=== PATIENT | male | born 1990 | race Caucasian/White ===

== ENCOUNTER 2017-09-05 18:02 | Emergency (ER) | payer OTHER ==
[~2017-09-05] VITALS: Ht 172.7 cm; Wt 115.7 kg
--- NOTE | 2017-09-05 20:00 | ULTRASOUND REPORT ---
EXAMINATION: US RETROPERITONEAL COMPLETE (RENAL) CLINICAL INFORMATION: Right flank pain.. COMPARISON: Renal ultrasound 11/02/2009. CT abdomen pelvis 09/29/2009. TECHNIQUE: Real-time imaging of the kidneys and bladder. Color Doppler exam used. FINDINGS: RIGHT KIDNEY: 12.9 x 5.8 x 6.7 cm (SAG x AP x TRV). There is mild hydronephrosis of right kidney. There is dilatation of renal pelvis and calyces. No renal calculus. The kidney is of normal size and contour with normal cortical thickness and normal echogenicity of the cortex. LEFT KIDNEY: 12.5 x 6.4 x 5.8 cm (SAG x AP x TRV). The kidney is normal in size, contour, and echogenicity. Renal cortical thickness is normal. No calculi or focal parenchymal lesions. No hydronephrosis. BLADDER: Prevoid bladder volume is 43.5 mL. Bilateral ureteral jets are demonstrated. Post void bladder was not assessed. IMPRESSION: Hydronephrosis of the right kidney.. No renal calculus. CT stone study may be helpful for further assessment.
[2017-09-05 20:05] LABS: ABSOLUTE BASOPHIL COUNT 0 /CUMM (0.0-0.2); ABSOLUTE EOSINOPHIL COUNT 0.1 /CUMM (0.0-0.7); ABSOLUTE GRANULOCYTE CT 6.6 /CUMM (1.4-6.5); ABSOLUTE LYMPH COUNT 1.9 /CUMM (1.2-3.4); ABSOLUTE MONOCYTE COUNT 0.7 /CUMM (0.10-0.60); BASOPHIL % 0.3 % (0.0-2.0); EOSINOPHIL % 1.5 % (0-5); HEMATOCRIT 44.7 % (42-52); MEAN CORPUSCULAR HGB 29.6 PG (27.0-31.0); MEAN CORPUSCULAR HGB CONC 33.9 G/DL (33.0-37.0); MEAN CORPUSCULAR VOLUME 87.2 FL (80.0-94.0); MEAN PLATELET VOLUME 8.8 FL (7.4-10.4); PLATELET COUNT 217 /CUMM (130-400); RBC DISTRIBUTION WIDTH 13.5 % (11.5-14.5); RED BLOOD CELL CT 5.13 /CUMM (4.70-6.10); WHITE BLOOD CELL COUNT 9.3 /CUMM (4.8-10.8)
[2017-09-06] MEDS ORDERED: FLOMAX0.4 M1 PO (00:21)
[2017-09-06] MEDS ORDERED: PERCOCET 5-3251 EACH PO (00:21)
--- NOTE | 2017-09-06 00:21 | ED GENERAL ADULT ---
History of Present Illness General Chief Complaint: Low Back Pain/Injury Stated Complaint: LOWER BACK PAIN Source: patient Exam Limitations: no limitations Vital Signs & Intake/Output Vital Signs & Intake/Output Vital Signs Date Time Temp Pulse Resp B/P B/P Pulse O2 O2 Flow FiO2 Mean Ox Delivery Rate 09/06 0037 98.2 80 20 136/86 97 Room Air 09/05 1829 98.4 76 18 145/85 98 Room Air ED Intake and Output 09/06 0000 09/05 1200 Intake Total 1000 Output Total Balance 1000 Intake, IV 1000 Patient 255 lb Weight Weight Reported by Patient Measurement Method Allergies Uncoded Allergies: Allergy Other NKA Food Allergies NKA Med Allergies NKDA Reconcile Medications Oxycodone HCl/Acetaminophen (Percocet 5-325 MG Tablet) 5 MG-325 MG TABLET 1 TAB PO EVERY 6HRS- NEEDED PRN pain Tamsulosin HCl (Flomax) 0.4 MG CAP.ER.24H 1 CAP PO DAILY renal stone Triage Note: 27 YOMALE TO TRIAGE FOR EVAL OF R SIDED FLANK PAIN. REPORTS HX OF KIDNEY STONES AND THIS FEELS SIMILAR. DENIES URIANRY S/S. DENIES NVD. DENIES INURY TO BACK. Triage Nurses Notes Reviewed? yes Onset: Gradual Duration: hour(s): Timing: constant HPI: 27 y/o male with h/o renal stone and s/p gastric sleeve presenting with right flank pain x24 hours. Reports right low back pain that radiates around to the right flank. Feels similar to prior kidney stones. Denies fevers, nausea, vomiting, dysuria, hematuria. (Aubree Hughes) Past History Travel History Traveled to [place] past 21 day No Medical History Any Pertinent Medical History? 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 No (Aubree Hughes) Review of Systems Review of Systems Constitutional: Reports: no symptoms. EENTM: Reports: no symptoms. Respiratory: Reports: no symptoms. Cardiovascular: Reports: no symptoms. GI: Reports: see HPI. Genitourinary: Reports: see HPI. Musculoskeletal: Reports: no symptoms. Skin: Reports: no symptoms. Neurological/Psychological: Reports: no symptoms. Hematologic/Endocrine: Reports: no symptoms. Immunologic/Allergic: Reports: no symptoms. (Aubree Hughes) Physical Exam Physical Exam General Appearance: well developed/nourished, no apparent distress, alert, awake , comfortable Head: atraumatic, normal appearance Eyes: Bilateral: normal appearance. Neck: normal inspection Respiratory: normal breath sounds, lungs clear Cardiovascular: regular rate/rhythm Gastrointestinal: soft, non-tender Back: normal inspection, No CVAT Extremities: normal inspection Neurologic/Psych: awake, alert, oriented x 3, normal gait, normal mood/affect Skin: intact, normal color, warm/dry Core Measures ACS in differential dx? No CVA/TIA Diagnosis: No Sepsis Present: No Sepsis Focused Exam Completed? No (Aubree Hughes) Progress Differential Diagnoses I considered the following diagnoses in my evaluation of the patient: [ ureterolithiasis vs hydro vs UTI vs pyelo] Plan of Care: Orders Procedure Date/time Status CBC WITHOUT DIFFERENTIAL 09/06 1903 Complete BASIC METABOLIC PANEL 09/06 1903 Complete Current Medications Sig/Fco Start time Last Medication Dose Stop Time Status Admin Tamsulosin HCl 0.4 MG ONCE ONE 09/06 2199 CAN (Flomax) 09/06 2200 Laboratory Tests 09/05/17 1950: Anion Gap 12, Estimated GFR > 60, BUN/Creatinine Ratio 15.0, Glucose 118 H, Calcium 9.6, CBC w Diff NO MAN DIFF REQ, RBC 5.13, MCV 87.2, MCH 29.6, MCHC 33.9 , RDW 13.5, MPV 8.8, Gran % 71.0, Lymphocytes % 19.9 L, Monocytes % 7.3, Eosinophils % 1.5, Basophils % 0.3, Absolute Granulocytes 6.6 H, Absolute Lymphocytes 1.9, Absolute Monocytes 0.7 H, Absolute Eosinophils 0.1, Absolute Basophils 0 09/05/171903: Urine Color Cancelled, Urine Clarity Cancelled, Urine pH Cancelled, Ur Specific [place] Cancelled, Urine Protein Cancelled, Urine Ketones Cancelled, Urine Nitrite Cancelled, Urine Bilirubin Cancelled, Urine Urobilinogen Cancelled, Ur Leukocyte Esterase Cancelled, Ur Microscopic Cancelled, Urine Hemoglobin Cancelled, Urine Glucose Cancelled US shows mild right hydro, unable to identify ureteral stone. Labs unremarkable. Pt unable to provide UA in ED. Discussed with EDMD and will send home with cup to provide UA at home. Pt is followed by urologist in [place] and will call for appt tomorrow morning. If able to provide UA overnight will bring with him to urologist's. Given rx flomax and percoet prn pain (unable to take NSAIDs). Given strict return precautions. Initial ED EKG: none (Aubree Hughes) Departure Departure Disposition: HOME OR SELF CARE Condition: Stable Clinical Impression Primary Impression: Right flank pain Referrals: Leila FIELD,Nirav (PCP/Family) Additional Instructions: Take flomax as prescribed. Use percocet as needed for pain. Follow up with your urologist for re-evaluation. Return to the emergency department for any new or worsening symptoms. Departure Forms: Customer Survey General Discharge Information Prescriptions: Current Visit Scripts Tamsulosin HCl (Flomax) 1 CAP PO DAILY #14 CAP Oxycodone HCl/Acetaminophen (Percocet 5-325 MG Tablet) 1 TAB PO EVERY 6HRS- NEEDED PRN pain #10 TAB (Aubree Hughes) PA/EMAIL MARKETING PROCESSOR Co-Sign Statement Statement: ED Attending supervision documentation- [] I saw and evaluated the patient. I have also reviewed all the pertinent lab results and diagnostic results. I agree with the findings and the plan of care as documented in the PA's/EMAIL MARKETING PROCESSOR's documentation. [x] I have reviewed the ED Record and agree with the PA's/EMAIL MARKETING PROCESSOR's documentation. [] Additions or exceptions (if any) to the PAs/EMAIL MARKETING PROCESSOR's note and plan are summarized below: [] (Eduardo FIELD,Toni Pappas) Critical Care Note Critical Care Note Critical Care Time: non-applicable (Aubree Hughes)
[2017-09-06 00:37] VITALS: BP 136/86
== END 2017-09-06 00:37 ==
LOC: ERH 18:02
PROVIDERS: Physician Assistant
DX: R10.31 Right lower quadrant pain (principal)
CPT/HCPCS: 76775; 96361; 96374; J1885